=== PATIENT | female | born 1970 | race Hispanic/Latino ===

== ENCOUNTER 2018-03-02 23:16 | Emergency (ER) | payer SELFPAY ==
[~2018-03-02] VITALS: Ht 149.9 cm; Wt 77.1 kg
--- OUTSIDE RECORDS SUMMARY | 2018-03-02 23:19 | XMS REPORT ---
[facility] Address Unknown Phone Unavailable Care Team Providers Care Emt/Paramedic Name Role Phone Unavailable Unavailable Problems This patient has no known problems. Allergies, Adverse Reactions, Alerts This patient has no known allergies or adverse reactions. Medications This patient has no known medications. Encounters Start Date/Time End Date/Time Encounter Type Admission Type Attending [facility] Facility Care Department Encounter ID 2018-10-09 00:00:00 2018-10-09 00:00:00 Outpatient [facility] [id number] 2018-08-13 00:00:00 2018-08-13 00:00:00 Outpatient [facility] [id number] 2018-04-15 00:00:00 2018-04-15 00:00:00 Outpatient [facility] [id number] 2018-04-07 00:00:00 2018-04-07 00:00:00 Outpatient [facility] [id number] 2018-03-25 00:00:00 2018-03-25 00:00:00 Outpatient [facility] [id number] 2018-03-11 00:00:00 2018-03-11 00:00:00 Outpatient [facility] [id number] 2018-03-09 00:00:00 2018-03-09 00:00:00 Outpatient [facility] [id number] 2018-03-02 00:00:00 2018-03-02 00:00:00 Outpatient [facility] [id number] 2018-02-10 00:00:00 2018-02-10 00:00:00 Outpatient [facility] [id number] 2018-02-07 00:00:00 2018-02-07 00:00:00 Outpatient [facility] [id number] 2018-02-02 15:14:23 2018-02-02 15:14:23 Outpatient [facility] [id number] 2018-01-30 19:59:40 2018-01-30 19:59:40 Emergency [facility] [id number] 2018-01-30 16:29:34 2018-01-30 16:29:34 Emergency [facility] [id number] 2018-01-30 16:08:13 2018-01-30 16:08:13 Emergency [facility] [id number] 2018-01-27 10:38:17 2018-01-27 10:38:17 Outpatient [facility] [id number] 2018-01-24 00:00:00 2018-01-24 00:00:00 Outpatient [facility] [id number] 2018-01-18 14:13:58 2018-01-18 14:13:58 Outpatient [facility] [id number] 2018-01-17 14:31:36 2018-01-17 14:31:36 Outpatient [facility] [id number] 2018-01-17 00:00:00 2018-01-17 00:00:00 Outpatient [facility] [id number] 2018-01-13 11:39:00 2018-01-13 11:39:00 Outpatient [facility] [id number] 2018-01-13 00:00:00 2018-01-13 00:00:00 Outpatient [facility] [id number] 2017-12-29 00:00:00 2017-12-29 00:00:00 Outpatient [facility] [id number] 2017-12-07 00:00:00 2017-12-07 00:00:00 Outpatient [facility] [id number] 2017-12-01 00:00:00 2017-12-01 00:00:00 Outpatient [facility] [id number] 2017-12-01 00:00:00 2017-12-01 00:00:00 Outpatient [facility] [id number] 2017-11-29 00:00:00 2017-11-29 00:00:00 Outpatient [facility] [id number] 2017-11-25 00:00:00 2017-11-25 00:00:00 Outpatient [facility] [id number] 2017-11-18 11:03:51 2017-11-18 11:03:51 Outpatient [facility] [id number] 2017-11-18 10:49:53 2017-11-18 10:49:53 Outpatient [facility] [id number] 2017-11-11 13:14:58 2017-11-11 13:14:58 Outpatient [facility] [id number] 2017-11-11 00:00:00 2017-11-11 00:00:00 Outpatient [facility] [id number] 2017-11-10 14:17:44 2017-11-10 14:17:44 Outpatient [facility] [id number] 2017-11-09 00:00:00 2017-11-09 00:00:00 Outpatient [facility] [id number] 2017-11-08 09:58:26 2017-11-08 09:58:26 Outpatient [facility] [id number] 2017-11-05 20:54:23 2017-11-05 20:54:23 Emergency [facility] [id number] 2017-11-05 14:07:06 2017-11-05 14:07:06 Outpatient [facility] [id number] 2017-10-29 11:52:42 2017-10-29 11:52:42 Outpatient [facility] [id number] 2017-10-28 08:29:38 2017-10-28 08:29:38 Outpatient [facility] [id number] 2017-10-19 00:00:00 2017-10-19 00:00:00 Outpatient [facility] [id number] 2017-10-18 11:40:01 2017-10-18 11:40:01 Outpatient [facility] [id number] 2017-10-18 10:47:35 2017-10-18 10:47:35 Outpatient [facility] [id number] 2017-10-18 00:00:00 2017-10-18 00:00:00 Outpatient [facility] [id number] 2017-10-15 00:00:00 2017-10-15 00:00:00 Outpatient [facility] [id number] 2017-10-07 07:56:05 2017-10-07 07:56:05 Outpatient [facility] [id number] 2017-10-06 13:10:27 2017-10-06 13:10:27 Outpatient [facility] [id number] 2017-10-01 00:00:00 2017-10-01 00:00:00 Outpatient [facility] [id number] 2017-09-15 15:40:12 2017-09-15 15:40:12 Outpatient [facility] [id number] 2017-09-08 12:34:38 2017-09-08 12:34:38 Outpatient [facility] [id number] 2017-08-20 00:00:00 2017-08-20 00:00:00 Outpatient [facility] [id number] 2017-08-13 17:14:55 2017-08-13 17:14:55 Emergency [facility] [id number] 2017-08-12 10:25:47 2017-08-12 10:25:47 Outpatient [facility] [id number] 2017-08-12 10:25:24 2017-08-12 10:25:24 Outpatient [facility] [id number] 2017-08-11 13:59:30 2017-08-11 13:59:30 Outpatient [facility] [id number] 2017-08-05 09:54:08 2017-08-05 09:54:08 Outpatient [facility] [id number] 2017-06-29 00:00:00 2017-06-29 00:00:00 Outpatient [facility] [id number] 2017-06-16 10:25:14 2017-06-16 10:25:14 Outpatient [facility] [id number] 2017-05-13 00:00:00 2017-05-13 00:00:00 Outpatient [facility] [id number] 2017-05-07 00:00:00 2017-05-07 00:00:00 Outpatient [facility] [id number] 2017-04-30 00:00:00 2017-04-30 00:00:00 Outpatient [facility] [id number] 2017-04-28 00:00:00 2017-04-28 00:00:00 Outpatient [facility] [id number] 2017-04-23 00:00:00 2017-04-23 00:00:00 Outpatient [facility] [id number] 2017-04-21 08:34:11 2017-04-21 08:34:11 Outpatient [facility] [id number] 2017-04-09 00:00:00 2017-04-09 00:00:00 Outpatient [facility] [id number] 2017-04-02 00:00:00 2017-04-02 00:00:00 Outpatient [facility] [id number] 2017-03-26 00:00:00 2017-03-26 00:00:00 Outpatient [facility] [id number] 2017-03-19 00:00:00 2017-03-19 00:00:00 Outpatient [facility] [id number] 2017-03-18 00:00:00 2017-03-18 00:00:00 Outpatient [facility] [id number] 2017-03-12 00:00:00 2017-03-12 00:00:00 Outpatient [facility] [id number] 2017-03-12 00:00:00 2017-03-12 00:00:00 Outpatient [facility] [id number] 2017-03-12 00:00:00 2017-03-12 00:00:00 Outpatient [facility] [id number] 2017-03-11 00:00:00 2017-03-11 00:00:00 Outpatient [facility] [id number] 2017-03-11 00:00:00 2017-03-11 00:00:00 Outpatient [facility] [id number] 2017-02-26 00:00:00 2017-02-26 00:00:00 Outpatient [facility] [id number] 2017-02-23 00:00:00 2017-02-23 00:00:00 Outpatient [facility] [id number] 2017-02-19 13:50:33 2017-02-19 13:50:33 Outpatient [facility] [id number] 2017-02-19 09:30:33 2017-02-19 09:30:33 Outpatient [facility] [id number] 2017-02-10 00:00:00 2017-02-10 00:00:00 Outpatient [facility] [id number] 2017-02-08 00:00:00 2017-02-08 00:00:00 Outpatient [facility] [id number] 2017-02-05 13:05:04 2017-02-05 13:05:04 Outpatient [facility] [id number] 2017-02-03 13:02:17 2017-02-03 13:02:17 Outpatient [facility] [id number] 2017 14:29:55 2017 14:29:55 Outpatient [facility] [id number] 2017-01-26 08:53:41 2017-01-26 08:53:41 Outpatient [facility] [id number] 2017-01-22 00:00:00 2017-01-22 00:00:00 Outpatient [facility] [id number] 2017-01-15 14:14:29 2017-01-15 14:14:29 Outpatient [facility] [id number] 2017-01-13 00:00:00 2017-01-13 00:00:00 Outpatient [facility] [id number] 2017-01-08 13:20:32 2017-01-08 13:20:32 Outpatient [facility] [id number] 2017-01-05 10:13:34 2017-01-05 10:13:34 Outpatient [facility] [id number] 2017-01-04 13:20:12 2017-01-04 13:20:12 Outpatient [facility] [id number] 2017-01-01 13:12:35 2017-01-01 13:12:35 Outpatient [facility] [id number] 2016-12-31 12:21:00 2016-12-31 12:21:00 Outpatient [facility] [id number] 2016-12-31 10:34:56 2016-12-31 10:34:56 Outpatient [facility] [id number] 2016-12-25 00:00:00 2016-12-25 00:00:00 Outpatient [facility] [id number] 2016-12-18 13:30:53 2016-12-18 13:30:53 Outpatient [facility] [id number] 2016-12-11 00:00:00 2016-12-11 00:00:00 Outpatient [facility] [id number] 2016-12-11 00:00:00 2016-12-11 00:00:00 Outpatient [facility] [id number] 2016-12-09 00:00:00 2016-12-09 00:00:00 Outpatient [facility] [id number] 2016-12-04 00:00:00 2016-12-04 00:00:00 Outpatient [facility] [id number] 2016-12-03 12:52:34 2016-12-03 12:52:34 Outpatient [facility] [id number] 2016-11-27 13:07:27 2016-11-27 13:07:27 Outpatient [facility] [id number] 2016-11-27 00:00:00 2016-11-27 00:00:00 Outpatient [facility] [id number] 2016-11-20 00:00:00 2016-11-20 00:00:00 Outpatient [facility] [id number] 2016-11-13 14:08:56 2016-11-13 14:08:56 Outpatient [facility] [id number] 2016-11-06 13:18:04 2016-11-06 13:18:04 Outpatient [facility] [id number] 2016-11-05 00:00:00 2016-11-05 00:00:00 Outpatient [facility] [id number] 2016-10-29 00:00:00 2016-10-29 00:00:00 Outpatient [facility] [id number] 2016-10-19 14:45:00 2016-10-19 14:45:00 Emergency [facility] [id number] 2016-10-16 13:17:48 2016-10-16 13:17:48 Outpatient [facility] [id number] 2016-10-15 09:33:18 2016-10-15 09:33:18 Outpatient [facility] [id number] 2016-10-07 14:07:49 2016-10-07 14:07:49 Outpatient [facility] [id number] 2016-08-31 00:00:00 2016-08-31 00:00:00 Outpatient [facility] [id number]
--- OUTSIDE RECORDS SUMMARY | 2018-03-02 23:19 | XMS REPORT | Summary of Care ---
Author Author [facility] Organization [facility] Address Unknown Phone Unavailable Encounter HQ Josh(FIN) [id number] Date(s): 05/21/15 - 05/22/15 [facility] [address] [place] [address]- [phone] Discharge Diagnosis: Unspecified physeal fracture of lower end of right fibula, initial encounter for closed fracture Discharge Disposition: Home Attending Physician: Huber Palmer MD Vital Signs Most recent to 1 2 oldest [Reference Range]: Temperature Oral 98.0 DegF 98.2 DegF [96.4-99.1 DegF] (05/22/15 2:24 AM) (05/21/15 9:59 PM) Blood Pressure 158/89 mmHg 154/82 mmHg [90-140/60-90 mmHg] *HI* *HI* (05/22/15 2:24 AM) (05/21/15 9:59 PM) Respiratory Rate 18 BRMIN 18 BRMIN [14-20 BRMIN] (05/22/15 2:24 AM) (05/21/15 9:59 PM) Peripheral Pulse 74 bpm 82 bpm Rate [60-100 bpm] (05/22/15 2:24 AM) (05/21/15 9:59 PM) Weight 68.182 kg (05/21/15 9:59 PM) Problem List Condition Effective Dates Status Health Status Informant Diabetes Active mellitus(Confirmed) Hypercholesterolemia Active (Confirmed) Allergies, Adverse Reactions, Alerts Substance Reaction Severity Status NKDA Active Medications Merritt 5/325 oral tablet 1 tab, Route: PO, Drug Form: TAB, Dosing Weight 68.182, kg, ONCE, STAT, Start da te: 05/22/15 1:15:00, Stop date: 05/22/15 1:15:00 Start Date: 05/22/15 Stop Date: 05/22/15 Status: Completed Tylenol with Codeine #3 oral tablet 1 - 2 tab, PO, Q4H, PRN Pain, X 2 day, # 20 tab, 0 Refill(s) Start Date: 05/22/15 Stop Date: 05/24/15 Status: Completed Results No data available for this section Immunizations No data available for this section Procedures Procedure Date Related Diagnosis Body Site section Cystectomy TL - Tubal ligation Social History Social History Type Response Smoking Status Never smoker; Exposure to Tobacco Smoke None; Cigarette Smoking Last 365 Days No; Reg Smoking Cessation Counseling No Assessment and Plan No data available for this section
--- OUTSIDE RECORDS SUMMARY | 2018-03-02 23:19 | XMS REPORT | Summary of Care ---
Author Author [facility] Organization [facility] Address Unknown Phone Unavailable Encounter CJ Moreno(MYRIAM) [id number] Date(s): 11/13/14 - 11/13/14 [id number] [place] [address]- Discharge Diagnosis: Subconjunctival hemorrhage Discharge Disposition: Home Attending Physician: Constantino Velasquez MD Vital Signs Most recent to 1 2 oldest [Reference Range]: Height 149.86 cm (11/13/14 1:22 PM) Most recent to 1 2 oldest [Reference Range]: Temperature Oral 99.1 DegF 99.2 DegF [96.4-99.1 DegF] (11/13/14 2:35 PM) *HI* (11/13/14 1:22 PM) Most recent to 1 2 oldest [Reference Range]: Blood Pressure 138/82 mmHg 144/86 mmHg [90-140/60-90 mmHg] (11/13/14 2:35 PM) *HI* (11/13/14 1:22 PM) Most recent to 1 2 oldest [Reference Range]: Respiratory Rate 18 BRMIN 18 BRMIN [14-20 BRMIN] (11/13/14 2:35 PM) (11/13/14 1:22 PM) Most recent to 1 2 oldest [Reference Range]: Peripheral Pulse 84 bpm 80 bpm Rate [60-100 bpm] (11/13/14 2:35 PM) (11/13/14 1:22 PM) Most recent to 1 2 oldest [Reference Range]: Weight 65.909 kg (11/13/14 1:22 PM) Most recent to 1 2 oldest [Reference Range]: Body Mass Index 29.35 m2 (11/13/14 1:22 PM) Problem List Condition Effective Dates Status Health Status Informant Diabetes Active mellitus(Confirmed) Hypercholesterolemia Active (Confirmed) Allergies, Adverse Reactions, Alerts Substance Reaction Severity Status NKDA Active Medications No data available for this section Results No data available for this section [...]
--- OUTSIDE RECORDS SUMMARY | 2018-03-02 23:19 | XMS REPORT | Summary of Care ---
Author Organization Unknown Address Unknown Phone Unavailable Encounter [facility] Josh(MYRIAM) [id number] Date(s): 02/01/14 - 02/01/14 [facility] [address] [address] Discharge Disposition: Home Physician Attending: Blanquita Duffy MD Reason for Visit WEAKNESS Vital Signs 1 2 3 Most recent to oldest [Reference Range]: 149.86 cm (02/01/14 2:17 PM) Height 98.0 DegF (02/01/14 7:10 PM) 98 DegF (02/01/14 5:37 PM) 98.2 DegF (02/01/14 2:17 PM) Temperature Oral [96.4-99.1 DegF] 128 mmHg (02/01/14 7:10 PM) 126 mmHg (02/01/14 5:37 PM) 125 mmHg (02/01/14 2:17 PM) Systolic Blood Pressure [90-140 mmHg] 62 mmHg (02/01/14 7:10 PM) 80 mmHg (02/01/14 5:37 PM) 80 mmHg (02/01/14 2:17 PM) Diastolic Blood Pressure [60-90 mmHg] 18 BRMIN (02/01/14 7:10 PM) 18 BRMIN (02/01/14 5:37 PM) 20 BRMIN (02/01/14 2:17 PM) Respiratory Rate [14-20 BRMIN] 91 bpm (02/01/14 7:10 PM) 90 bpm (02/01/14 5:37 PM) 85 bpm (02/01/14 2:17 PM) Peripheral Pulse Rate [60-100 bpm] 74.545 kg (02/01/14 2:17 PM) Weight 33.19 m2 (02/01/14 2:17 PM) Body Mass Index Problem List Condition Effective Dates Status Health Status Informant Diabetes Active mellitus(Confirmed) Hypercholesterolemia Active (Confirmed) Allergies, Adverse Reactions, Alerts Substance Reaction Severity Status NKDA Active Medications Saline Flush 0.9% 10 mL, Route: IVP, Drug Form: INJ, Dosing Weight 74.545, kg, PRN, PRN Line Flush , Start date: 02/01/14 15:41:00, Duration: 30 day, Stop date: 03/03/14 14:40:00 Notes: (Same as: BD Posiflush) Start Date: 02/01/14 Stop Date: 02/01/14 Status: Discontinued Sodium Chloride 0.9% (titrate) 250 mL 250 mL, Rate: call or contact centre coach for use with blood product administration, Dosing Weight 7 4.545, kg, Route: IV, Total Volume: 250, Start Date: 02/01/14 16:36:00, Duration : 1 day, Stop date: 02/02/14 16:35:00, Replace Every: 24 hr Start Date: 02/01/14 Stop Date: 02/01/14 Status: Discontinued Results BLOOD BANK RESULTS Most recent to 1 oldest [Reference Range]: ABO/Rh O POS *Unknown* (02/01/14 4:30 PM) Antibody Scrn Negative (02/01/14 4:30 PM) RBC product Product available 1 (02/01/14 4:30 PM) 1Result Comment: 02/01/2014 17:53 [id number] Called to [facility] at 02/01/2014 17:52. ELECTROLYTES Most recent to 1 oldest [Reference Range]: Sodium Lvl [135-145 136 mEq/L mEq/L] (02/01/14 3:45 PM) Potassium Lvl 3.9 mEq/L [3.5-5.1 mEq/L] (02/01/14 3:45 PM) Chloride Lvl [95-109 101 mEq/L mEq/L] (02/01/14 3:45 PM) CO2 [24-32 mEq/L] 26 mEq/L (02/01/14 3:45 PM) AGAP [10.0-20.0 12.9 mEq/L mEq/L] (02/01/14 3:45 PM) CHEM PANEL Most recent to 1 oldest [Reference Range]: Creatinine Lvl 0.8 mg/dL [0.5-1.4 mg/dL] (02/01/14 3:45 PM) eGFR 89 mL/min/1.73m2 2 *NA* (02/01/14 3:45 PM) BUN [7-22 mg/dL] 9 mg/dL (02/01/14 3:45 PM) B/C Ratio [6-25] 11 (02/01/14 3:45 PM) Glucose Lvl [70-99 374 mg/dL 3 mg/dL] *HI* (02/01/14 3:45 PM) Total Protein 6.8 g/dL [6.4-8.4 g/dL] (02/01/14 3:45 PM) Albumin Lvl [3.5-5.0 3.7 g/dL g/dL] (02/01/14 3:45 PM) Globulin [2.0-4.0 3.1 g/dL g/dL] (02/01/14 3:45 PM) A/G Ratio [0.7-1.6] 1.2 (02/01/14 3:45 PM) Calcium Lvl 8.6 mg/dL [8.5-10.5 mg/dL] (02/01/14 3:45 PM) ALT [0-65 unit/L] 26 unit/L (02/01/14 3:45 PM) AST [0-37 unit/L] 18 unit/L (02/01/14 3:45 PM) Alk Phos [39-136 87 unit/L unit/L] (02/01/14 3:45 PM) Bili Total [0.2-1.3 0.4 mg/dL mg/dL] (02/01/14 3:45 PM) 2Result Comment: The eGFR is calculated using the CKD-EPI formula. In most young, healthy individuals the eGFR will be >90 mL/min/1.73m2. The eGFR declines with age. An eGFR of 60-89 may be normal in some populations, particularly the elderly, for whom the CKD-EPI formula has not been extensively validated. Use of the eGFR is not recommended in the following populations: Individuals with unstable creatinine concentrations, including patients and those with serious co-morbid conditions. Patients with extremes in muscle mass or diet. The data above are obtained from the National Kidney Disease Education Program ( NKDEP) which additionally recommends that when the eGFR is used in patients with extremes of body mass index for purposes of drug dosing, the eGFR should be mul tiplied by the estimated BMI. 3Interpretive Data: Adult reference range values reflect the clinical guidelines of the [place] [employer]. CARDIAC ENZYMES Most recent to 1 oldest [Reference Range]: Total CK [12-191 60 unit/L unit/L] (02/01/14 3:45 PM) CK MB [0.5-3.6 0.7 ng/mL ng/mL] (02/01/14 3:45 PM) CK MB Index 1.2 [0.0-2.5] (02/01/14 3:45 PM) Troponin-I <0.02 ng/mL [0.00-0.40 ng/mL] (02/01/14 3:45 PM) BNP [<=100 pg/mL] 18 pg/mL 4 (02/01/14 3:45 PM) 4Interpretive Data: Elevated results are in line with increasing severity of congestive heart failure. Minor elevations between 100 and 300 may be seen with Myocardial Ischemia, Sodium retaining drugs, and compensated/treated heart failure. URINE CHEM Most recent to 1 oldest [Reference Range]: U Preg [Negative] Negative (02/01/14 4:35 PM) URINE AND STOOL Most recent to 1 oldest [Reference Range]: UA Turbidity [Clear] Clear (02/01/14 4:35 PM) UA Color Ltyellow *NA* (02/01/14 4:35 PM) UA pH [5.0-8.0] 6.0 (02/01/14 4:35 PM) UA Spec Grav 1.031 [<=1.030] *HI* (02/01/14 4:35 PM) UA Glucose [Negative 500 mg/dL mg/dL] *ABN* (02/01/14 4:35 PM) UA Blood [Negative] Moderate *ABN* (02/01/14 4:35 PM) UA Ketones [Negative Negative mg/dL mg/dL] *NA* (02/01/14 4:35 PM) UA Protein [Negative Negative mg/dL mg/dL] (02/01/14 4:35 PM) UA Urobilinogen <=1.0 mg/dL [0.1-1.0 mg/dL] *NA* (02/01/14 4:35 PM) UA Bili [Negative] Negative *NA* (02/01/14 4:35 PM) UA Leuk Est Small [Negative] *ABN* (02/01/14 4:35 PM) UA Nitrite Negative [Negative] (02/01/14 4:35 PM) UA WBC [0-5 /HPF] 7 /HPF *HI* (02/01/14 4:35 PM) UA RBC [0-2 /HPF] 7 /HPF *HI* (02/01/14 4:35 PM) UA Sq Epi [Few /LPF] Moderate /LPF *ABN* (02/01/14 4:35 PM) Occult Bld Stl Negative [Negative] (02/01/14 5:01 PM) HEMATOLOGY Most recent to 1 oldest [Reference Range]: WBC [3.7-10.4 K/CMM] 7.7 K/CMM (02/01/14 3:45 PM) RBC [4.20-5.40 2.78 M/CMM M/CMM] *LOW* (02/01/14 3:45 PM) Hgb [12.0-16.0 g/dL] 7.3 g/dL *LOW* (02/01/14 3:45 PM) Hct [36.0-48.0 %] 23.3 % *LOW* (02/01/14 3:45 PM) MCV [80.0-98.0 fL] 83.9 fL (02/01/14 3:45 PM) MCH [27.0-31.0 pg] 26.4 pg *LOW* (02/01/14 3:45 PM) MCHC [32.0-36.0 31.5 g/dL g/dL] *LOW* (02/01/14 3:45 PM) RDW [11.5-14.5 %] 14.3 % (02/01/14 3:45 PM) Platelet [133-450 430 K/CMM K/CMM] (02/01/14 3:45 PM) MPV [7.4-10.4 fL] 7.7 fL (02/01/14 3:45 PM) Segs [45.0-75.0 %] 60.2 % (02/01/14 3:45 PM) Lymphocytes 32.6 % [20.0-40.0 %] (02/01/14 3:45 PM) Monocytes [2.0-12.0 4.7 % %] (02/01/14 3:45 PM) Eosinophils [0.0-4.0 1.0 % %] (02/01/14 3:45 PM) Basophils [0.0-1.0 1.5 % %] *HI* (02/01/14 3:45 PM) Segs-Bands # 4.6 K/CMM [1.5-8.1 K/CMM] (02/01/14 3:45 PM) Lymphocytes # 2.5 K/CMM [1.0-5.5 K/CMM] (02/01/14 3:45 PM) Monocytes # [0.0-0.8 0.4 K/CMM K/CMM] (02/01/14 3:45 PM) Eosinophils # 0.1 K/CMM [0.0-0.5 K/CMM] (02/01/14 3:45 PM) Basophils # [0.0-0.2 0.1 K/CMM K/CMM] (02/01/14 3:45 PM) PT [12.0-14.7 12.8 seconds seconds] (02/01/14 3:45 PM) INR [0.85-1.17] 0.96 5 (02/01/14 3:45 PM) D-Dimer 1.27 ug/mL FEU 6 *NA* (02/01/14 3:45 PM) PTT [22.9-35.8 24.9 seconds 7 seconds] (02/01/14 3:45 PM) 5Interpretive Data: RECOMMENDED RANGES FOR PROTIME INR: 2.0-3.0 for most medical and surgical thromboembolic states. 2.5-3.5 for artificial heart valves and recurrent embolism. INR SHOULD BE USED ONLY FOR PATIENTS ON STABLE ANTICOAGULANT THERAPY. 6Interpretive Data: In DIC, quantitative D-Dimer is generally greater than 0.66 ug/mL FEU. Values of quantitative D-Dimer less than 0.40 ug/mL FEU have been reported to be associated with a low probability of deep vein thrombosis/pulmonary embolism. This test alone should not be used to rule out DVT/PE. 7Interpretive Data: Heparin Therapeutic Range: 57 - 92 Seconds Medications Administered During Your Visit No data available for this section Immunizations No data available for this section Social History Social History Type Response
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
--- OUTSIDE RECORDS SUMMARY | 2018-03-02 23:19 | XMS REPORT | Summary of Care ---
Author Author [facility] Organization [facility] Address Unknown Phone Unavailable Encounter HQ Josh(MYRIAM) [id number] Date(s): 08/27/16 - 08/28/16 [facility] [address] [place] [address]- [phone] Discharge Diagnosis: Acute pyelonephritis Discharge Disposition: Home or Self Care Attending Physician: Malorie Montgomery DO Vital Signs 1 2 3 Most recent to oldest [Reference Range]: 149.86 cm (08/27/16 10:42 PM) Height 98.5 DegF (08/28/16 4:34 AM) 98.6 DegF (08/27/16 11:47 PM) 98.5 DegF (08/27/16 10:42 PM) Temperature Oral [96.4-99.1 DegF] 152/74 mmHg *HI* (08/28/16 4:34 AM) 144/75 mmHg *HI* (08/28/16 2:01 AM) Blood Pressure [90-140/60-90 mmHg] 158 mmHg *HI* (08/27/16 11:47 PM) Systolic Blood Pressure [90-140 mmHg] 94 mmHg *HI* (08/27/16 11:47 PM) Diastolic Blood Pressure [60-90 mmHg] 18 BRMIN (08/28/16 4:34 AM) 18 BRMIN (08/28/16 2:01 AM) 18 BRMIN (08/27/16 11:47 PM) Respiratory Rate [14-20 BRMIN] 85 bpm (08/28/16 4:34 AM) 86 bpm (08/28/16 2:01 AM) 94 bpm (08/27/16 11:47 PM) Peripheral Pulse Rate [60-100 bpm] 65.909 kg (08/27/16 10:42 PM) Weight 29.35 m2 (08/27/16 10:42 PM) Body Mass Index Problem List Condition Effective Dates Status Health Status Informant Diabetes Active mellitus(Confirmed) Hypercholesterolemia Active (Confirmed) Allergies, Adverse Reactions, Alerts Substance Reaction Severity Status NKDA Active Medications Insulin regular 7 unit, Route: IVP, ONCE, Dosing Weight 65.909, kg, Priority: STAT, Start date: 08/28/16 1:24:00 CDT, Stop date: 08/28/16 1:24:00 CDT Start Date: 08/28/16 Stop Date: 08/28/16 Status: Completed Macrobid 100 mg oral capsule 100 mg=1 cap, PO, BID, X 14 day, # 28 cap, 0 Refill(s) Start Date: 08/28/16 Stop Date: 09/11/16 Status: Ordered morphine Sulfate 4 mg, Route: IVP, ONCE, Dosing Weight 65.909, kg, Priority: STAT, Start date: 22:47:00 CDT, Stop date: 08/27/16 22:47:00 CDT Start Date: 08/27/16 Stop Date: 08/27/16 Status: Completed ondansetron 4 mg, Route: IVP, ONCE, Dosing Weight 65.909, kg, Priority: STAT, Start date: 22:47:00 CDT, Stop date: 08/27/16 22:47:00 CDT Start Date: 08/27/16 Stop Date: 08/27/16 Status: Completed Rocephin 2 gm, Route: IVPB, Drug form: PDR/INJ, ONCE, Dosing Weight 65.909, kg, Priority: STAT, Start date: 08/28/16 2:54:00 CDT, Duration: 1 doses or times, Stop date: 08/28/16 2:54:00 CDT, ABX Indication: Urinary Tract Infection Start Date: 08/28/16 Stop Date: 08/28/16 Status: Completed Saline Flush 0.9% 10 mL, Route: IVP, Drug Form: INJ, Dosing Weight 65.909, kg, PRN, PRN Line Flush , Start date: 08/27/16 22:47:00 CDT, Duration: 30 day, Stop date: 09/26/16 22:46 :00 CDT Notes: (Same as: BD Posiflush) Start Date: 08/27/16 Stop Date: 08/28/16 Status: Discontinued Sodium Chloride 0.9% (Bolus) IV 1,000 mL, Infuse Over: 1 hr, Route: IV, ONCE, Priority: STAT, Dosing Weight 65.9 09 kg, Start date: 08/28/16 2:54:00 CDT, Duration: 1 doses or times, Stop date: 08/28/16 2:54:00 CDT Start Date: 08/28/16 Stop Date: 08/28/16 Status: Completed Sodium Chloride 0.9% (Bolus) IV 1,000 mL, 2,000 ml/hr, Infuse Over: 30 minutes, Route: IV, ONCE, Priority: STAT, Dosing Weight 65.909 kg, Start date: 08/27/16 22:47:00 CDT, Duration: 1 doses or times, Stop date: 08/27/16 22:47:00 CDT Start Date: 08/27/16 Stop Date: 08/27/16 Status: Completed Results ELECTROLYTES Most recent to 1 oldest [Reference Range]: Sodium Lvl [135-145 130 mEq/L mEq/L] *LOW* (08/27/16 11:03 PM) Potassium Lvl 4.2 mEq/L [3.5-5.1 mEq/L] (08/27/16 11:03 PM) Chloride Lvl [95-109 92 mEq/L mEq/L] *LOW* (08/27/16 11:03 PM) CO2 [24-32 mEq/L] 27 mEq/L (08/27/16 11:03 PM) AGAP [10.0-20.0 15.2 mEq/L mEq/L] (08/27/16 11:03 PM) CHEM PANEL Most recent to 1 oldest [Reference Range]: Creatinine Lvl 0.91 mg/dL [0.50-1.40 mg/dL] (08/27/16 11:03 PM) eGFR 75 mL/min/1.73m2 1 *NA* (08/27/16 11:03 PM) BUN [7-22 mg/dL] 13 mg/dL (08/27/16 11:03 PM) B/C Ratio [6-25] 14 (08/27/16 11:03 PM) Glucose Lvl [70-99 530 mg/dL 2 mg/dL] *CRIT* (08/27/16 11:03 PM) Total Protein 8.1 g/dL [6.4-8.4 g/dL] (08/27/16 11:03 PM) Albumin Lvl [3.5-5.0 3.6 g/dL g/dL] (08/27/16 11:03 PM) Globulin [2.7-4.2 4.5 g/dL g/dL] *HI* (08/27/16 11:03 PM) A/G Ratio [0.7-1.6] 0.8 (08/27/16 11:03 PM) Calcium Lvl 9.9 mg/dL [8.5-10.5 mg/dL] (08/27/16 11:03 PM) ALT [0-65 unit/L] 19 unit/L (08/27/16 11:03 PM) AST [0-37 unit/L] 8 unit/L (08/27/16 11:03 PM) Alk Phos [39-136 121 unit/L unit/L] (08/27/16 11:03 PM) Bili Total [0.2-1.3 1.1 mg/dL mg/dL] (08/27/16 11:03 PM) Lipase Lvl [73-393 209 unit/L unit/L] (08/27/16 11:03 PM) 1Result Comment: The eGFR is calculated [...] be mul tiplied by the estimated BMI. 2Result Comment: Critical Result(s) called to scot at 08/27/2016 23:46 by id. Read back OK. URINE CHEM Most recent to 1 oldest [Reference Range]: U Preg [Negative] Negative (08/27/16 11:57 PM) URINE AND STOOL Most recent to 1 oldest [Reference Range]: UA Turbidity [Clear] Marked *ABN* (08/27/16 11:57 PM) UA Color Ltyellow *NA* (08/27/16 11:57 PM) UA pH [5.0-8.0] 7.0 (08/27/16 11:57 PM) UA Spec Grav 1.022 [<=1.030] (08/27/16 11:57 PM) UA Glucose [Negative 500 mg/dL mg/dL] *ABN* (08/27/16 11:57 PM) UA Blood [Negative] Small *ABN* (08/27/16 11:57 PM) UA Ketones [Negative 20 mg/dL mg/dL] *ABN* (08/27/16 11:57 PM) UA Protein [Negative Negative mg/dL mg/dL] (08/27/16 11:57 PM) UA Urobilinogen <=1.0 mg/dL [0.1-1.0 mg/dL] *NA* (08/27/16 11:57 PM) UA Bili [Negative] Negative *NA* (08/27/16 11:57 PM) UA Leuk Est Large [Negative] *ABN* (08/27/16 11:57 PM) UA Nitrite Negative [Negative] (08/27/16 11:57 PM) UA WBC [0-5 /HPF] >182 /HPF *HI* (08/27/16 11:57 PM) UA RBC [0-2 /HPF] 20 /HPF *HI* (08/27/16 11:57 PM) UA Bacteria [None Occasional /HPF Seen /HPF] *NA* (08/27/16 11:57 PM) UA Sq Epi [Few /LPF] Occasional /LPF *NA* (08/27/16 11:57 PM) UA Ryde Yeast [None Occasional /HPF Seen /HPF] *ABN* (08/27/16 11:57 PM) HEMATOLOGY Most recent to 1 oldest [Reference Range]: WBC [3.7-10.4 K/CMM] 9.3 K/CMM (08/27/16 11:03 PM) RBC [4.20-5.40 4.36 M/CMM M/CMM] (08/27/16 11:03 PM) Hgb [12.0-16.0 g/dL] 13.5 g/dL (08/27/16 11:03 PM) Hct [36.0-48.0 %] 40.2 % (08/27/16: PM) MCV [80.0-98.0 fL] 92.2 fL (08/27/16:03 PM) MCH [27.0-31.0 pg] 31.1 pg *HI* (08/27/16: PM) MCHC [32.0-36.0 33.7 g/dL g/dL] (08/27/16:03 PM) RDW [11.5-14.5 %] 12.6 % (08/27/16 11:03 PM) Platelet [133-450 366 K/CMM K/CMM] (08/27/16:03 PM) MPV [7.4-10.4 fL] 7.5 fL (08/27/16 11:03 PM) Segs [45.0-75.0 %] 75.4 % *HI* (08/27/16:03 PM) Lymphocytes 16.7 % [20.0-40.0 %] *LOW* (08/27/16:03 PM) Monocytes [2.0-12.0 6.6 % %] (08/27/16 11:03 PM) Eosinophils [0.0-4.0 0.6 % %] (08/27/16 11:03 PM) Basophils [0.0-1.0 0.7 % %] (08/27/16 11:03 PM) Segs-Bands # 7.0 K/CMM [1.5-8.1 K/CMM] (08/27/16 11:03 PM) Lymphocytes # 1.6 K/CMM [1.0-5.5 K/CMM] (08/27/16 11:03 PM) Monocytes # [0.0-0.8 0.6 K/CMM K/CMM] (08/27/16 11:03 PM) Eosinophils # 0.1 K/CMM [0.0-0.5 K/CMM] (08/27/16 11:03 PM) Basophils # [0.0-0.2 0.1 K/CMM K/CMM] (08/27/16 11:03 PM) Immunizations No data available for this [...]
--- OUTSIDE RECORDS SUMMARY | 2018-03-02 23:19 | XMS REPORT | Summary of Care ---
Author Author [facility] Organization [facility] Address Unknown Phone Unavailable Encounter HQ Josh(MYRIAM) [id number] Date(s): 08/23/16 - 08/23/16 [facility] [address] [place] [address]- Discharge Disposition: Elopement Attending Physician: Pipe Whiting MD Vital Signs Most recent to 1 oldest [Reference Range]: Height 157.48 cm (08/23/16 9:05 PM) Temperature Oral 98.6 DegF [96.4-99.1 DegF] (08/23/16 9:05 PM) Blood Pressure 176/93 mmHg [90-140/60-90 mmHg] *HI* (08/23/16 9:05 PM) Respiratory Rate 18 BRMIN [14-20 BRMIN] (08/23/16 9:05 PM) Peripheral Pulse 98 bpm Rate [60-100 bpm] (08/23/16 9:05 PM) Weight 62.727 kg (08/23/16 9:05 PM) Body Mass Index 25.29 m2 (08/23/16 9:05 PM) Problem List Condition Effective Dates Status Health Status Informant Diabetes Active mellitus(Confirmed) Hypercholesterolemia Active (Confirmed) Allergies, Adverse Reactions, Alerts Substance Reaction Severity Status NKDA Active Medications ketOROLAC 30 mg, 1 mL, Route: IVP, Drug form: INJ, ONCE, Dosing Weight 62.727, kg, Priorit y: STAT, Start date: 08/23/16 21:12:00 CDT, Stop date: 08/23/16 21:12:00 CDT Notes: (Same as:Toradol) IV bolus must be given >15 seconds. Give IM administration slowly and deeply into the muscle.Not for use > 4 days MEDICATION WASTE Product Size: 30 mgProduct Wasted: ___ mg Start Date: 08/23/16 Stop Date: 08/23/16 Status: Ordered Saline Flush 0.9% 10 mL, Route: IVP, Drug Form: INJ, Dosing Weight 62.727, kg, PRN, PRN Line Flush , Start date: 08/23/16 21:12:00 CDT, Duration: 30 day, Stop date: 09/22/16 21:11 :00 CDT Notes: Same as: BD Posiflush Sterile Start Date: 08/23/16 Stop Date: 08/24/16 Status: Discontinued Sodium Chloride 0.9% (Bolus) IV 1,000 mL, 2,000 ml/hr, Infuse Over: 30 minutes, Route: IV, 1,000, Drug form: INJ , ONCE, Priority: STAT, Dosing Weight 62.727 kg, Start date: 08/23/16 21:12:00 C DT, Duration: 1 doses or times, Stop date: 08/23/16 21:12:00 CDT Start Date: 08/23/16 Stop Date: 08/23/16 Status: Ordered Results No data available for this section [...]
--- OUTSIDE RECORDS SUMMARY | 2018-03-02 23:19 | XMS REPORT | Summary of Care ---
Author Organization Unknown Address Unknown Phone Unavailable Encounter CJ Moreno(MYRIAM) [id number] Date(s): 04/18/14 - 04/18/14 [facility] [address] Discharge Diagnosis: Acute gastritis Discharge Disposition: Home Physician Attending: Adrian Horta MD Reason for Visit ABD PAIN Vital Signs 1 2 3 Most recent to oldest [Reference Range]: 149.86 cm (04/18/14 3:19 PM) Height 98.4 DegF (04/18/14 9:27 PM) 98.9 DegF (04/18/14 3:19 PM) Temperature Oral [96.4-99.1 DegF] 124 mmHg (04/18/14 9:27 PM) 128 mmHg (04/18/14 7:45 PM) 137 mmHg (04/18/14 3:19 PM) Systolic Blood Pressure [90-140 mmHg] 67 mmHg (04/18/14 9:27 PM) 67 mmHg (04/18/14 7:45 PM) 83 mmHg (04/18/14 3:19 PM) Diastolic Blood Pressure [60-90 mmHg] 18 BRMIN (04/18/14 9:27 PM) 18 BRMIN (04/18/14 7:45 PM) 18 BRMIN (04/18/14 3:19 PM) Respiratory Rate [14-20 BRMIN] 88 bpm (04/18/14 9:27 PM) 78 bpm (04/18/14 7:45 PM) 92 bpm (04/18/14 3:19 PM) Peripheral Pulse Rate [60-100 bpm] 114.545 kg (04/18/14 3:19 PM) Weight 51 m2 (04/18/14 3:19 PM) Body Mass Index Problem List Condition Effective Dates Status Health Status Informant Diabetes Active mellitus(Confirmed) Hypercholesterolemia Active (Confirmed) Allergies, Adverse Reactions, Alerts Substance Reaction Severity Status NKDA Active Medications Carafate 1 g/10 mL oral suspension 1 gm=10 ml, PO, QID-Before Meals, # 400 ml, 0 Refill(s) Start Date: 04/18/14 Stop Date: 04/28/14 Status: Ordered GI cocktail 30 mL, Route: PO, Drug Form: SUSP, Dosing Weight 114.545, kg, ONCE, STAT, Start date: 04/18/14 16:10:00, Stop date: 04/18/14 16:10:00 Notes: G.I. Cocktail=antacid with simethicone 22.5 mL - lidocaine viscous 7.5 mL Start Date: 04/18/14 Stop Date: 04/18/14 Status: Completed GI cocktail 30 mL, Route: PO, Dosing Weight 114.545, kg, ONCE, STAT, Start date: 04/18/14 21 :01:00, Stop date: 04/18/14 21:01:00 Start Date: 04/18/14 Stop Date: 04/18/14 Status: Completed morphine Sulfate 4 mg, 2 mL, Route: IVP, Drug form: INJ, ONCE, Dosing Weight 114.545, kg, Priorit y: STAT, Start date: 04/18/14 18:46:00, Stop date: 04/18/14 18:46:00 Notes: (Same as:MORPhine Sulfate) Start Date: 04/18/14 Stop Date: 04/18/14 Status: Completed morphine Sulfate 4 mg, Route: IVP, Drug form: INJ, ONCE, Dosing Weight 114.545, kg, Priority: STA T, Start date: 04/18/14 17:14:00, Stop date: 04/18/14 17:14:00 Start Date: 04/18/14 Stop Date: 04/18/14 Status: Completed Mylanta [place] oral suspension 10 ml, PO, TID, for indigestion, # 360 ml, 0 Refill(s) Start Date: 04/18/14 Status: Ordered normal saline 0.9% IV 1,000 mL 1,000 mL, Rate: 1,000 ml/hr, Infuse over: 1 hr, Route: IV, Dosing Weight 114.545 kg, Total Volume: 1,000, Priority: STAT, Start date: 04/18/14 16:09:00, Michelineo n: 1 doses or times, Stop date: 04/18/14 17:08:00 Start Date: 04/18/14 Stop Date: 04/18/14 Status: Completed Pepcid 20 mg oral tablet 20 mg=1 tab, PO, BID, # 60 tab, 0 Refill(s) Start Date: 04/18/14 Status: Ordered Pepcid 20 mg oral tablet 20 mg, 2 mL, Route: IV, Drug form: INJ, ONCE, Dosing Weight 114.545, kg, Start d ate: 04/18/14 16:09:00, Stop date: 04/18/14 16:09:00 Notes: (Same as: Pepcid)Can be dilute in 5-10cc NS IVP: Slow IV push over at le ast 2 minutes. Start Date: 04/18/14 Stop Date: 04/18/14 Status: Completed Zofran 4 mg, 2 mL, Route: IVP, Drug form: INJ, ONCE, Dosing Weight 114.545, kg, Priorit y: STAT, Start date: 04/18/14 16:09:00, Stop date: 04/18/14 16:09:00 Notes: (Same as: Zofran) Start Date: 04/18/14 Stop Date: 04/18/14 Status: Completed Results ELECTROLYTES Most recent to 1 oldest [Reference Range]: Sodium Lvl [135-145 137 mEq/L mEq/L] (04/18/14 4:14 PM) Potassium Lvl 3.9 mEq/L [3.5-5.1 mEq/L] (04/18/14 4:14 PM) Chloride Lvl [95-109 101 mEq/L mEq/L] (04/18/14 4:14 PM) CO2 [24-32 mEq/L] 31 mEq/L (04/18/14 4:14 PM) AGAP [10.0-20.0 8.9 mEq/L mEq/L] *LOW* (04/18/14 4:14 PM) CHEM PANEL Most recent to 1 oldest [Reference Range]: Creatinine Lvl 0.8 mg/dL [0.5-1.4 mg/dL] (04/18/14 4:14 PM) eGFR 89 mL/min/1.73m2 1 *NA* (04/18/14 4:14 PM) BUN [7-22 mg/dL] 8 mg/dL (04/18/14 4:14 PM) B/C Ratio [6-25] 10 (04/18/14 4:14 PM) Glucose Lvl [70-99 190 mg/dL 2 mg/dL] *HI* (04/18/14 4:14 PM) Total Protein 8.5 g/dL [6.4-8.4 g/dL] *HI* (04/18/14 4:14 PM) Albumin Lvl [3.5-5.0 4.5 g/dL g/dL] (04/18/14 4:14 PM) Globulin [2.0-4.0 4.0 g/dL g/dL] (04/18/14 4:14 PM) A/G Ratio [0.7-1.6] 1.1 (04/18/14 4:14 PM) Calcium Lvl 10.1 mg/dL [8.5-10.5 mg/dL] (04/18/14 4:14 PM) ALT [0-65 unit/L] 41 unit/L (04/18/14 4:14 PM) AST [0-37 unit/L] 41 unit/L *HI* (04/18/14 4:14 PM) Alk Phos [39-136 98 unit/L unit/L] (04/18/14 4:14 PM) Bili Total [0.2-1.3 0.3 mg/dL mg/dL] (04/18/14 4:14 PM) Amylase Lvl [25-115 26 unit/L unit/L] (04/18/14 4:14 PM) Lipase Lvl [73-393 113 unit/L unit/L] (04/18/14 4:14 PM) 1Result Comment: The eGFR is calculated [...] be mul tiplied by the estimated BMI. 2Interpretive Data: Adult reference range values reflect the clinical guidelines of the [place] [employer]. URINE CHEM Most recent to 1 oldest [Reference Range]: U Preg [Negative] Negative (04/18/14 4:14 PM) URINE AND STOOL Most recent to 1 oldest [Reference Range]: UA Turbidity [Clear] Clear (04/18/14 4:14 PM) UA Color [Yellow] Yellow *NA* (04/18/14 4:14 PM) UA pH [5.0-8.0] 6.0 (04/18/14 4:14 PM) UA Spec Grav 1.026 [<=1.030] (04/18/14 4:14 PM) UA Glucose [Negative 150 mg/dL mg/dL] *ABN* (04/18/14 4:14 PM) UA Blood [Negative] Negative (04/18/14 4:14 PM) UA Ketones [Negative Negative mg/dL mg/dL] *NA* (04/18/14 4:14 PM) UA Protein [Negative Negative mg/dL mg/dL] (04/18/14 4:14 PM) UA Urobilinogen 4.0 mg/dL [0.1-1.0 mg/dL] *HI* (04/18/14 4:14 PM) UA Bili [Negative] Negative *NA* (04/18/14 4:14 PM) UA Leuk Est Trace [Negative] *ABN* (04/18/14 4:14 PM) UA Nitrite Negative [Negative] (04/18/14 4:14 PM) UA WBC [0-5 /HPF] 4 /HPF (04/18/14 4:14 PM) UA RBC [0-2 /HPF] 3 /HPF *HI* (04/18/14 4:14 PM) UA Sq Epi [Few /LPF] Few /LPF *NA* (04/18/14 4:14 PM) UA Mucus [None Seen Few /LPF /LPF] *NA* (04/18/14 4:14 PM) HEMATOLOGY Most recent to 1 oldest [Reference Range]: WBC [3.7-10.4 K/CMM] 6.2 K/CMM (04/18/14 8:03 PM) RBC [4.20-5.40 4.85 M/CMM M/CMM] (04/18/14 8:03 PM) Hgb [12.0-16.0 g/dL] 12.8 g/dL (04/18/14 8:03 PM) Hct [36.0-48.0 %] 39.0 % (04/18/14 8:03 PM) MCV [80.0-98.0 fL] 80.4 fL (04/18/14 8:03 PM) MCH [27.0-31.0 pg] 26.4 pg *LOW* (04/18/14 8:03 PM) MCHC [32.0-36.0 32.9 g/dL g/dL] (04/18/14 8:03 PM) RDW [11.5-14.5 %] 18.6 % *HI* (04/18/14 8:03 PM) Platelet [133-450 298 K/CMM K/CMM] (04/18/14 8:03 PM) MPV [7.4-10.4 fL] 7.9 fL (04/18/14 8:03 PM) Segs [45.0-75.0 %] 44.0 % *LOW* (04/18/14 8:03 PM) Lymphocytes 46.5 % [20.0-40.0 %] *HI* (04/18/14 8:03 PM) Monocytes [2.0-12.0 6.4 % %] (04/18/14 8:03 PM) Eosinophils [0.0-4.0 1.5 % %] (04/18/14 8:03 PM) Basophils [0.0-1.0 1.6 % %] *HI* (04/18/14 8:03 PM) Segs-Bands # 2.7 K/CMM [1.5-8.1 K/CMM] (04/18/14 8:03 PM) Lymphocytes # 2.9 K/CMM [1.0-5.5 K/CMM] (04/18/14 8:03 PM) Monocytes # [0.0-0.8 0.4 K/CMM K/CMM] (04/18/14 8:03 PM) Eosinophils # 0.1 K/CMM [0.0-0.5 K/CMM] (04/18/14 8:03 PM) Basophils # [0.0-0.2 0.1 K/CMM K/CMM] (04/18/14 8:03 PM) Medications Administered During Your Visit No data available for this section Immunizations No data available for this section Procedures Procedure Type Body Site Date of Procedure Related Diagnosis Cystectomy Social History Social History Type Response Smoking Status Never smoker, Exposure to Tobacco Smoke None, Cigarette Smoking Last 365 Days No, Reg Smoking Cessation Counseling No
[2018-03-02] MEDS ORDERED: SODIUM CHLORIDE 0.9% 1000ML 1,000 ML ONE (23:53)
[2018-03-03] MEDS ORDERED: INSULIN REGULAR, HUMAN 100 UNIT/1 ML 3ML VIAL SQ ONE
[2018-03-03] MEDS ORDERED: SODIUM CHLORIDE 0.9% 1000ML 1,000 ML IV ONE
[2018-03-03] MEDS ORDERED: INSULIN REGULAR, HUMAN 100 UNIT/1 ML 3ML VIAL IV ONE
[2018-03-03 00:09] LABS: BASOPHILS # (AUTO) 0.1 (0.0-0.1); EOSINOPHILS # (AUTO) 0.1 (0.0-0.4); EOSINOPHILS % 1.3 % (0.0-6.0); HEMATOCRIT 39.7 % (34.2-44.1); HEMOGLOBIN 13.7 g/dL (12.0-16.0); LYMPHOCYTES # (AUTO) 2.3 (1.0-3.2); LYMPHOCYTES % 38.2 % (18.0-39.1); MEAN CORPUSCULAR HEMOGLOBIN 30.2 pg (28-32); MEAN CORPUSCULAR HGB CONC 34.5 g/dL (31-35); MEAN CORPUSCULAR VOLUME 87.4 fL (81-99); MONOCYTES # (AUTO) 0.4 (0.2-0.8); MONOCYTES % 6.9 % (4.4-11.3); NEUTROPHILS # (AUTO) 3.2 (2.1-6.9); NEUTROPHILS % 52.4 % (38.7-80.0); PLATELET COUNT 306 x10e3/uL (140-360); RED BLOOD COUNT 4.54 x10e6/uL (3.6-5.1)
[2018-03-03 00:20] LABS: BILIRUBIN,URINE NEGATIVE (NEGATIVE); CLARITY,URINE CLEAR (CLEAR); COLOR,URINE YELLOW (YELLOW); KETONES,URINE NEGATIVE (NEGATIVE); LEUKOCYTE ESTERASE ,URINE NEGATIVE (NEGATIVE); NITRITE,URINE NEGATIVE (NEGATIVE); PROTEIN,URINE DIPSTICK NEGATIVE (NEGATIVE); RBC,URINE 0-5 /HPF (0-5); URINE UROBILINOGEN 0.2 mg/dL (0.2 - 1); WBC,URINE (MAN) 0-5 /HPF (0-5)
[2018-03-03 00:21] LABS: EPITHELIAL CELLS,URINE FEW /LPF
[2018-03-03 00:27] LABS: ALANINE AMINOTRANSFERASE 23 IU/L (0-55); ALBUMIN 4.4 g/dL (3.5-5.0); ALBUMIN/GLOBULIN RATIO 1.2 (0.8-2.0); ALKALINE PHOSPHATASE 182 IU/L (40-150); ANION GAP 18.3 mmol/L (8-16); BLOOD UREA NITROGEN 15 mg/dL (7-26); BUN/CREATININE RATIO 11 (6-25); CALCIUM 10.6 mg/dL (8.4-10.2); CARBON DIOXIDE 26 mmol/L (22-29); CHLORIDE 90 mmol/L (98-107); CREATINE KINASE 77 IU/L (29-168); CREATININE, SERUM 1.31 mg/dL (0.57-1.11); EST GLOMERULAR FILTRATION RATE 43 ML/MIN (60-); POTASSIUM 4.3 mmol/L (3.5-5.1); SODIUM 130 mmol/L (136-145)
[2018-03-03 00:43] LABS: GLUCOSE 728 mg/dL (74-118)
== END 2018-03-03 02:15 | disposition home or self-care (01) ==
LOC: ER 23:16
DX: R10.30 Lower abdominal pain, unspecified (principal); R10.2 Pelvic and perineal pain; R30.0 Dysuria; E11.65 Type 2 diabetes mellitus with hyperglycemia; I10 Essential (primary) hypertension; E78.5 Hyperlipidemia, unspecified; F31.9 Bipolar disorder, unspecified; F41.9 Anxiety disorder, unspecified
CPT/HCPCS: 36415; 80053; 81001; 82550; 82553; 82948; 84484; 85025; 99283; J1817; J7030